=== PATIENT | female | born 2000 | race African-American/Black ===

== ENCOUNTER 2024-11-08 19:34 | Emergency (ER) | payer OTHER, SELFPAY ==
[2024-11-08] VITALS (8 sets, daily range): BP systolic 109–171; BP diastolic 57–88; PULSE 67–112; RESP 13–21; TEMP 36.6–36.7; O2SAT 98–100; BMI 38.3
--- NOTE | 2024-11-08 19:46 | RAD_ITS ---
STUDY: X-RAY CHEST REASON FOR EXAM: Female, 24 years old. chest pain TECHNIQUE: AP portable COMPARISON: None. FINDINGS: Mild asymmetric prominence of the markings in right lower lobe possibly representing subsegmental atelectasis or evolving infiltrate. There is no demonstrated pleural abnormality. Normal size heart. Normal mediastinum and bret. Normal visualized pulmonary arteries. Normal visualized aortic arch and descending thoracic aorta. Normal visualized thoracic spine. Normal visualized ribs, clavicles, and shoulders. There is no demonstrated abnormality of the visualized soft tissue structures of the upper abdomen. RAD/Chest 1 View (Portable) IMPRESSION: Question mild right lower lobe atelectasis or evolving infiltrate. Electronically Signed: Chucky Munroe MD at 20:43 EST ,
--- NOTE | 2024-11-08 19:46 | EKG12_ITS ---
Test Reason : CP Blood Pressure : */* mmHG Vent. Rate : 113 BPM Atrial Rate : 113 BPM P-R Int : 172 ms QRS Dur : 84 ms QT Int : 324 ms P-R-T Axes : 47 57 49 degrees QTcB Int : 444 ms Sinus tachycardia Otherwise normal ECG Confirmed by Adriel Garcia ([id number]), market editor AVIS SELLERS ([id number]) on 11/09/2024 9:26:02 AM Referred By: Confirmed By: Adriel Garcia
[2024-11-08 20:07] LABS: Absolute Lymphocyte Count 2.24 X10^3/uL (0.83-4.51); Absolute Neutrophil Count 4.4 X10^3/uL (2.0-7.7); Basophil# 0.03 X10^3/uL; Basophil% 0.4 % (0-1); Eosinophil# 0.12 X10^3/uL; Eosinophils% 1.6 % (0-5); Hematocrit 38.8 % (37-47); Hemoglobin 12.9 g/dL (12.0-15.0); Lymphocyte # 2.24 X10^3/ul (0.83-4.51); Lymphocyte % 30.4 % (19-41); Mean Corp Hgb Conc 33.2 g/dL (32-36); Mean Corpuscular Hgb 27.7 pg (27.0-32.0); Mean Corpuscular Volume 83.3 fL (81-99); Mean Platelet Vol. 9.4 fl (6.2-12.0); Monocyte# 0.59 X10^3/uL; NRBC Flagged by Analyzer 0 % (0-5); Neutrophil # 4.38 X10^3/uL (2.7-7.7); Neutrophil % 59.5 % (47-70); Platelet Count 266 K/mm3 (150-450); RBC Distribution Width CV 14.6 % (11.6-14.6); RBC Distribution Width SD 43.9 fl (35.1-43.9); Red Blood Count 4.66 M/mm3 (4.2-5.4); White Blood Count 7.4 K/mm3 (4.4-11.0)
[2024-11-08 20:26] LABS: Anion Gap 5 (5-15); BUN 18 mg/dL (7-18); BUN/Creat Ratio 21.6 RATIO (10-20); Calcium,Total 9.1 mg/dL (8.5-10.1); Chloride 113 mmol/L (98-107); Creatinine, Serum 0.84 mg/dL (0.55-1.02); EST Glomerular Filtration Rate 88 mL/min (>60); Est Glom Filt Rate - Afr Amer 107 mL/min (>60); Glucose 113 mg/dL (74-106); Potassium 3.7 mmol/L (3.5-5.1); Sodium Level 142 mmol/L (136-145); Troponin-I HS (w/2H Reflex) 4 pg/mL (3.0-54.0)
[2024-11-08 20:41] LABS: D-Dimer Quantitative (DVT/PE) 0.32 FEU/ug/m (0.27-0.49)
--- NOTE | 2024-11-08 20:58 | EX.ED.DYSGE1 ---
HPI History of Present Illness Chief Complaint: Chest Pain Detail of Chief Complaint: Midsternal chest heaviness Informant: patient Onset/Context/Timing Onset: Today (1600 while lying flat) Context: Sudden Onset Timing: Continuous Quality: Pressure Location: Midsternal with radiation to the back Current Severity: Mild Maximum Severity: Severe Worsened by: Possibly breathing Relieved by: Nothing Associated Symptoms Associated Symptoms: Mild shortness of breath and paresthesia hands and feet Narrative Narrative: Patient is a 24-year-old woman. BMI is 38.4. There is a family history of hypertension. There is no family history of Marfan syndrome. There is no family history of aortic dissection. There is no history of cardiac disease at a young age. Patient reporting heaviness in her chest. With mild shortness of breath. There is no radiation. There is no nausea vomiting or diaphoresis. She denies intolerance to greasy or fried foods. She denies back pain at this time. Patient denies intolerance to greasy or fried foods. There is no family history cholelithiasis. Patient denies dysuria, frequency, urgency or hematuria. There is no history of renal ureterolithiasis. Prior similar symptoms: No Recent Illness/Hospitalization: No PFSH PFSH Medical History no medical history no medical history Allergy/AdvReac Type Severity Reaction Status Date / Time amoxicillin Allergy Mild Rash Verified 11/08/24 19:35 Surgical History no surgical history no surgical history Social History (Updated 11/08/24 @ 21:[address] Kieran Jon MD) household members: spouse Smoking Status: Never smoker ROS ROS ED Constitutional Constitutional ED: Denies chills, fever(s) or subjective Eyes Eyes: Denies blurry vision or change in vision ENT ENT ED: Denies ear pain, rhinorrhea or sore throat Cardiovascular Cardiovascular: Reports chest pain; Denies orthopnea, palpitations, paroxysmal nocturnal dyspnea or racing heartbeat Respiratory/Chest Respiratory/Chest: Reports dyspnea; Denies cough, dyspnea on exertion, orthopnea, paroxysmal nocturnal dyspnea or sputum Gastrointestinal Gastrointestinal: Denies abdominal pain, nausea or vomiting Genitourinary Genitourinary ED: Denies dysuria, hematuria or urinary frequency Musculoskeletal Musculoskeletal: Reports back pain; Denies arthralgias or myalgias Integumentary Denies rash Neurologic Neurologic: Denies headache(s) or paresthesias Psychiatric Psychiatric: Denies anxiety or depression Endocrine Endocrinology: Denies cold intolerance or heat intolerance Hematologic/Lymphatic Hematologic/Lymphatic: Reports systems reviewed and no addt'l complaints, except as documented EXAM Physical Exam Const Vital Signs: 11/08/24 19:35 11/08/24 20:30 11/08/24 20:44 Temperature 97.9 F Temperature Source Temporal Pulse Rate 112 H 67 Respiratory Rate 20 H 14 Respiratory Effort Blood Pressure 171/83 H 146/88 H Blood Pressure Mean 112 107 Pulse Ox 98 100 Oxygen Delivery Method Room Air Room Air Room Air 11/08/24 20:54 11/08/24 21:00 11/08/24 21:15 Temperature Temperature Source Pulse Rate 90 88 Respiratory Rate 15 13 Respiratory Effort Normal Non-Labored Blood Pressure 113/57 L 118/72 Blood Pressure Mean 75 86 Pulse Ox 99 99 Oxygen Delivery Method Room Air 11/08/24 21:30 11/08/24 21:45 11/08/24 22:00 Temperature Temperature Source Pulse Rate 84 82 92 Respiratory Rate 13 17 21 H Respiratory Effort Blood Pressure 109/63 109/77 118/74 Blood Pressure Mean 75 88 88 Pulse Ox 98 98 98 Oxygen Delivery Method 11/08/24 22:33 Temperature 98.0 F Temperature Source Pulse Rate 88 Respiratory Rate 18 Respiratory Effort Blood Pressure 118/76 Blood Pressure Mean 90 Pulse Ox 98 Oxygen Delivery Method Positive well nourished and well developed Constitutional Narrative: BMI is 38.4. Patient is slightly anxious. Blood pressure initially was 171/83. Repeat was 146/88. General Appearance ED: well developed; Negative for pallor HEENT Reports moist mucous membranes HEENT Narrative: Head is atraumatic normocephalic. Ears normal. Nares patent. Posterior pharynx is normal. Eyes PERRL and EOMs intact bilaterally General Eye ED: Negative for pale conjunctiva or scleral icterus Neck no lymphadenopathy, supple and no JVD Resp normal respiratory effort and clear to auscultation bilaterally Cardio regular rate, regular rhythm, S1 normal heart sound, S2 normal heart sound and no murmurs GI normal to inspection, nondistended, normoactive bowel sounds, non-tender, non-distended and no masses; Negative for hepatosplenomegaly GI Narrative: There is no palpable pulsatile mass. There is no abdominal bruit. Back/Spine no CVA tenderness Back/Spine Narrative: Inspection of the back is normal. Extremity normal to inspection Extremity Narrative: There is no clubbing or cyanosis. There is no asymmetry, discoloration, leg vein distention, palpable cords, tenderness on the distribution deep venous system. Neuro oriented x3, CN's II-XII intact bilaterally and no sensory deficits noted Sensorium / Orientation: alert Motor Exam: strength 5/5 throughout Psych Mood & Affect: anxious Skin no rashes or lesions noted, no wounds and skin turgor normal General Skin Exam: Negative for jaundice or pallor MDM MDM MDM Narrative Medical decision making narrative: With bilateral paresthesia chest discomfort this may represent anxiety reaction, nurse protocol was initiated. Need to evaluate for atypical present cardiac disease, doubt pericarditis or myocarditis. With her having pleuritic pain and not PERC negative on estrogen therapy need to consider PE as well as aortic dissection. D-dimer was obtained. Chest x-ray is obtained to assess the mediastinum and if there is any pulmonary pathology to explain her pain or hiatal hernia. History & Record Review Additional record(s) reviewed:: No prior records Lab Data Attestation: I reviewed the patient's lab results. Lab results narrative: CBC is normal. D-dimer is normal. Electrolyte panel is unremarkable. Glucose is 113 with normal CO2 anion gap. First troponin is normal at 4. Labs: Laboratory Results - last 24 hr 11/08/24 11/08/24 11/08/24 20:00 20:23 22:01 WBC 7.4 RBC 4.66 Hgb 12.9 Hct 38.8 MCV 83.3 MCH 27.7 MCHC 33.2 RDW Std Deviation 43.9 RDW Coeff of Abilio 14.6 Plt Count 266 MPV 9.4 Immature Gran % (Auto) 0.100 Neut % (Auto) 59.5 Lymph % (Auto) 30.4 Sampson % (Auto) 8.0 Eos % (Auto) 1.6 Baso % (Auto) 0.4 Absolute Neuts (auto) 4.4 Absolute Lymphs (auto) 2.24 Nucleated RBC % 0 D-Dimer Quant (PE/DVT) 0.32 Sodium 142 Potassium 3.7 Chloride 113 H Carbon Dioxide 24.0 Anion Gap 5 BUN 18 Creatinine 0.84 Estim Creat Clear Calc 122.90 Est GFR (MDRD) Af Amer 107 Est GFR (MDRD) Non-Af 88 BUN/Creatinine Ratio 21.6 H Glucose 113 H Calcium 9.1 Troponin I High Sens 4 < 3 L Second troponin is less than 3 with a negative delta. Patient be discharged to home. Radiography Chest X-Ray - ED: 1 View and Read by ED Physician (Single view chest x-ray reveals no widening the mediastinum. Cardiac silhouette size normal. Osseous structures are normal. There is probableAtelectasis right lower lobe. There is no discrete infiltrate. There is no pneumothorax or effusion noted.) Diagnostic Testing: Clinical Impression(s) from Imaging Studies Chest X-Ray 11/08/24 19:46 IMPRESSION: Question mild right lower lobe atelectasis or evolving infiltrate. Electronically Signed: Chucky Munroe MD at 20:43 EST , The radiology report was read. I agree looked at the images. I do not agree that there is an infiltrate. EKG Initial EKG: Attestation: I personally reviewed and interpreted this EKG as follows: Interpretation: Sinus Rhythm (Rate is 113. The EKG is otherwise normal. NJ interval is 172 ms. QRS duration 84 ms. QT duration 124 ms. 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, pneumonia Reason(s) pneumonia less likely: Positive for no infiltrate on CXR, no elevation in WBC count, no noted fever and symptoms not consistent with acute infection and aortic dissection Reason(s) Aortic dissection less likely:: Positive for normal vascular exam, no history of HTN, normal neurological exam, no significant risk factors for dissection, no widened mediastinum on CXR, pain not sudden onset, no ripping/tearing pain, blood pressure appropriate in ED and other (D-dimer is normal.) Abdominal Pain: Cholecystitis Reason(s) Cholecystitis less likely: clinical exam does not support Discharge Plan Triage Chief Complaint: Chest Pain ED Provider: JonKieran Dx/Rx/DC Orders Clinical Impression: Chest pressure, Acute hyperventilation syndrome, Sinus tachycardia Instructions: ED Chest Pain, Noncardiac, ED Chest Pain, Uncertain Cause, ED Hyperventilation Syndrome Primary Care Provider: Care Physician,No Primary Referrals: Denver Morales MD [Med Staff - Active Staff] - 5-7 Days Care Physician,No Primary [Primary Care Provider] - Activity Restrictions/Additional Instructions: The exact cause of your pain is unknown. If you have ibuprofen take 4 tablets every 8 hours for the next 2 to 3 days. If you have Aleve 2 tablets every 12 hours for the next 2 to 3 days. Print Language: Swedish Disposition Disposition: Home, Self Care
[2024-11-08 22:05] LABS: Reflex Troponin-HS? (from REC) Y
[2024-11-08 22:34] LABS: Troponin-I HS < 3 pg/mL (3.0-54.0)
--- NOTE | 2024-11-08 22:41 | ED.RN ---
This RN went into the patient room because the monitor had been shut off. The patients s/o at bedside stated: I turned the monitor off because it was beeping. This RN replied: We have to keep the monitor on, she is here for chest pain and we need to watch her heart rhythm and other vital signs, the doctor ordered it. The patient shook her head and looked down at her lap. The s/o stated: I am sorry we didnt know. This RN stated to just call out if it is beeping and we can fix it. The patient took the blood pressure cuff off.
== END 2024-11-08 22:53 | disposition home or self-care (01) ==
PROVIDERS: Emergency Provider Emergency Medicine; Visit Provider Emergency Medicine
DX: R07.89 Other chest pain (principal); Z82.49 Family history of ischemic heart disease and other diseases of the circulatory system; R07.81 Pleurodynia; R06.02 Shortness of breath; R00.0 Tachycardia, unspecified; F45.8 Other somatoform disorders
CPT/HCPCS: 71045; 80048; 84484; 85025; 85379; 93005; 99284; A4216